=== PATIENT | female | born 1940 | race Caucasian/White ===

== ENCOUNTER 2020-01-20 15:17 | Inpatient (IN) | payer OTHER, MEDICAID, SELFPAY ==
[~2020-01-20] VITALS: Ht 172.7 cm; Wt 70.1 kg
[2020-01-20 16:32] LABS: BASOPHIL % 1.5 % (0-2); PLATELET COUNT 336 x10^3mcL (130-400); RED CELL DISTRIBUTION WIDTH 13.2 % (11.5-14.5)
[2020-01-20] MEDS ORDERED: COLACE100 MG (16:57)
[2020-01-20] MEDS ORDERED: ARICEPT10 MG PO (16:57)
[2020-01-20] MEDS ORDERED: KEPPRA500 MG PO (16:59)
[2020-01-20] MEDS ORDERED: FOSAMAX70 M1 (16:59)
[2020-01-20] MEDS ORDERED: M.V.I. ADULT10 ML (17:01)
[2020-01-20] MEDS ORDERED: DITROPAN XL5 MG PO (17:02)
[2020-01-20 17:04] LABS: microscopic required? YES; urine erythrocyte NEGATIVE (NEGATIVE)
[2020-01-20] MEDS ORDERED: PROVIGIL200 MG (17:04)
[2020-01-20] MEDS ORDERED: VALLUD (17:06)
[2020-01-20] MEDS ORDERED: VITAMIN C500 M6 (17:07)
[2020-01-20 17:19] LABS: CALCIUM 8.2 mg/dL (8.5-10.1); CARBON DIOXIDE 28.5 mmol/L (21-32); CHLORIDE SERUM 109 mmol/L (98-107); CREATININE SERUM 0.8 mg/dL (0.6-1.0); GLUCOSE SERUM 146 mg/dL (74-106); POTASSIUM SERUM 3.1 mmol/L (3.5-5.1); SODIUM SERUM 144 mmol/L (136-145)
[2020-01-20 17:24] LABS: ALBUMIN 2.4 g/dL (3.4-5.0); ALKALINE PHOSPHATASE 60 U/L (46-116); ALT/SGPT 20 U/L (14-59); AST/SGOT 21 U/L (15-37); BILIRUBIN TOTAL 0.49 mg/dL (0.20-1.00); C REACTIVE PROTEIN 11.8 mg/dL (<=0.9); LACTIC DEHYDROGENASE (LDH) 300 U/L (100-190); TOTAL PROTEIN, SERUM 6.5 g/dL (6.4-8.2)
[2020-01-20 21:11] VITALS: BP 138/62
[2020-01-21 06:12] VITALS: BP 127/55
[2020-01-21 06:13] VITALS: BP 138/62
[2020-01-21 09:51] VITALS: BP 156/65
[2020-01-21 11:57] VITALS: BP 133/56
[2020-01-21 17:24] VITALS: BP 124/55
[2020-01-21 18:35] LABS: BASOPHIL % 0.4 % (0-2); PLATELET COUNT 390 x10^3mcL (130-400)
[2020-01-21 18:47] LABS: CALCIUM 8.4 mg/dL (8.5-10.1); CARBON DIOXIDE 29.5 mmol/L (21-32); CHLORIDE SERUM 110 mmol/L (98-107); CREATININE SERUM 0.9 mg/dL (0.6-1.0); GLUCOSE SERUM 169 mg/dL (74-106); SODIUM SERUM 148 mmol/L (136-145)
[2020-01-21 18:52] LABS: ALBUMIN 2.5 g/dL (3.4-5.0); ALKALINE PHOSPHATASE 59 U/L (46-116); ALT/SGPT 21 U/L (14-59); AST/SGOT 23 U/L (15-37); BILIRUBIN TOTAL 0.5 mg/dL (0.20-1.00); TOTAL PROTEIN, SERUM 7.1 g/dL (6.4-8.2)
[2020-01-21 18:56] LABS: C REACTIVE PROTEIN 7.4 mg/dL (<=0.9)
[2020-01-21 21:49] VITALS: BP 137/59
[2020-01-22 06:20] VITALS: BP 127/53
[2020-01-22 07:58] LABS: CALCIUM 8.6 mg/dL (8.5-10.1); CARBON DIOXIDE 28.3 mmol/L (21-32); CHLORIDE SERUM 113 mmol/L (98-107); CREATININE SERUM 0.8 mg/dL (0.6-1.0); GLUCOSE SERUM 196 mg/dL (74-106); MAGNESIUM 2.3 mg/dL (1.8-2.4); PHOSPHOROUS 3.5 mg/dL (2.5-4.9); POTASSIUM SERUM 3.9 mmol/L (3.5-5.1); SODIUM SERUM 150 mmol/L (136-145)
[2020-01-22 08:05] LABS: BASOPHIL % 0.2 % (0-2); PLATELET COUNT 397 x10^3mcL (130-400); RED CELL DISTRIBUTION WIDTH 13.1 % (11.5-14.5)
[2020-01-22 08:15] LABS: BILIRUBIN TOTAL 0.4 mg/dL (0.20-1.00)
[2020-01-22 09:02] VITALS: BP 123/70
[2020-01-22 12:24] VITALS: BP 120/48
[2020-01-22 17:13] VITALS: BP 130/54
[2020-01-22 21:02] VITALS: BP 143/56
[2020-01-23 06:06] VITALS: BP 147/63
[2020-01-23 07:15] LABS: RED CELL DISTRIBUTION WIDTH 12.8 % (11.5-14.5)
[2020-01-23 08:00] VITALS: BP 121/61
[2020-01-23 08:29] LABS: BASOPHIL % 0 % (0-2); PLATELET COUNT 420 x10^3mcL (130-400)
[2020-01-23 08:35] LABS: ALKALINE PHOSPHATASE 57 U/L (46-116); ALT/SGPT 31 U/L (14-59); AST/SGOT 36 U/L (15-37); BILIRUBIN TOTAL 0.3 mg/dL (0.20-1.00); CALCIUM 8.3 mg/dL (8.5-10.1); CARBON DIOXIDE 30.7 mmol/L (21-32); CHLORIDE SERUM 115 mmol/L (98-107); CREATININE SERUM 0.8 mg/dL (0.6-1.0); GLUCOSE SERUM 171 mg/dL (74-106); MAGNESIUM 2.3 mg/dL (1.8-2.4); PHOSPHOROUS 3.7 mg/dL (2.5-4.9); POTASSIUM SERUM 3.9 mmol/L (3.5-5.1); SODIUM SERUM 153 mmol/L (136-145); TOTAL PROTEIN, SERUM 6.3 g/dL (6.4-8.2)
[2020-01-23 08:36] LABS: ALBUMIN 2.2 g/dL (3.4-5.0)
[2020-01-23 12:30] VITALS: BP 100/61
[2020-01-23 16:15] VITALS: BP 128/62
[2020-01-23 21:51] VITALS: BP 128/71
[2020-01-24 05:58] VITALS: BP 143/58
[2020-01-24 06:43] LABS: PLATELET COUNT 399 x10^3mcL (130-400)
[2020-01-24 06:55] LABS: BASOPHIL % 0 % (0-2)
[2020-01-24 07:27] LABS: MAGNESIUM 2.2 mg/dL (1.8-2.4); PHOSPHOROUS 4.4 mg/dL (2.5-4.9)
[2020-01-24 07:28] LABS: ALKALINE PHOSPHATASE 60 U/L (46-116); ALT/SGPT 48 U/L (14-59); AST/SGOT 42 U/L (15-37); BILIRUBIN TOTAL 0.38 mg/dL (0.20-1.00); CARBON DIOXIDE 29.3 mmol/L (21-32); CHLORIDE SERUM 117 mmol/L (98-107); CREATININE SERUM 0.8 mg/dL (0.6-1.0); GLUCOSE SERUM 173 mg/dL (74-106); POTASSIUM SERUM 4.1 mmol/L (3.5-5.1); SODIUM SERUM 153 mmol/L (136-145)
[2020-01-24 07:29] LABS: ALBUMIN 2.2 g/dL (3.4-5.0); TOTAL PROTEIN, SERUM 6.1 g/dL (6.4-8.2)
[2020-01-24 08:56] VITALS: BP 143/62
[2020-01-24 12:08] LABS: C REACTIVE PROTEIN 2.1 mg/dL (<=0.9)
[2020-01-24 12:34] VITALS: BP 142/114
[2020-01-24 16:56] VITALS: BP 146/98
[2020-01-24 19:23] VITALS: BP 151/70
[2020-01-25 05:26] VITALS: BP 159/53
[2020-01-25 07:10] LABS: ALKALINE PHOSPHATASE 54 U/L (46-116); ALT/SGPT 73 U/L (14-59); AST/SGOT 56 U/L (15-37); BILIRUBIN TOTAL 0.5 mg/dL (0.20-1.00); CALCIUM 8.3 mg/dL (8.5-10.1); CARBON DIOXIDE 32.7 mmol/L (21-32); CHLORIDE SERUM 114 mmol/L (98-107); CREATININE SERUM 0.8 mg/dL (0.6-1.0); GLUCOSE SERUM 173 mg/dL (74-106); POTASSIUM SERUM 4.1 mmol/L (3.5-5.1); SODIUM SERUM 150 mmol/L (136-145)
[2020-01-25 07:12] LABS: ALBUMIN 2.1 g/dL (3.4-5.0); TOTAL PROTEIN, SERUM 5.8 g/dL (6.4-8.2)
[2020-01-25 10:08] VITALS: BP 140/92
[2020-01-25 13:43] VITALS: BP 140/92
[2020-01-25 13:44] VITALS: BP 135/44
[2020-01-25 17:24] VITALS: BP 124/56
[2020-01-25 20:30] VITALS: BP 146/60
[2020-01-26 04:15] VITALS: BP 139/63
[2020-01-26 04:45] VITALS: BP 139/63
[2020-01-26 08:31] VITALS: BP 140/54
[2020-01-26 08:47] LABS: BASOPHIL % 0.3 % (0-2); RED CELL DISTRIBUTION WIDTH 12.6 % (11.5-14.5)
[2020-01-26 08:48] LABS: PLATELET COUNT 312 x10^3mcL (130-400)
[2020-01-26 09:09] LABS: ALKALINE PHOSPHATASE 52 U/L (46-116); ALT/SGPT 83 U/L (14-59); AST/SGOT 55 U/L (15-37); BILIRUBIN TOTAL 0.5 mg/dL (0.20-1.00); CALCIUM 8.1 mg/dL (8.5-10.1); CARBON DIOXIDE 30.2 mmol/L (21-32); CHLORIDE SERUM 115 mmol/L (98-107); CREATININE SERUM 0.7 mg/dL (0.6-1.0); GLUCOSE SERUM 173 mg/dL (74-106); MAGNESIUM 2.3 mg/dL (1.8-2.4); POTASSIUM SERUM 4.1 mmol/L (3.5-5.1); SODIUM SERUM 151 mmol/L (136-145)
[2020-01-26 09:10] LABS: TOTAL PROTEIN, SERUM 5.3 g/dL (6.4-8.2)
[2020-01-26 13:17] VITALS: BP 142/51
[2020-01-26 18:28] VITALS: BP 132/80
[2020-01-26 21:24] VITALS: BP 141/68
[2020-01-27 05:51] VITALS: BP 134/52
[2020-01-27 08:53] LABS: CALCIUM 8.4 mg/dL (8.5-10.1); CARBON DIOXIDE 30.9 mmol/L (21-32); CHLORIDE SERUM 110 mmol/L (98-107); CREATININE SERUM 0.7 mg/dL (0.6-1.0); GLUCOSE SERUM 231 mg/dL (74-106); POTASSIUM SERUM 3.9 mmol/L (3.5-5.1); SODIUM SERUM 147 mmol/L (136-145)
[2020-01-27 09:23] LABS: BASOPHIL % 0.1 % (0-2); PLATELET COUNT 312 x10^3mcL (130-400); RED CELL DISTRIBUTION WIDTH 12.7 % (11.5-14.5)
[2020-01-27 09:35] VITALS: BP 104/84
[2020-01-27 13:46] VITALS: BP 131/54
[2020-01-27 18:34] VITALS: BP 115/52
[2020-01-27 21:00] VITALS: BP 118/56
[2020-01-27 23:08] VITALS: BP 128/60
[2020-01-28 06:00] VITALS: BP 125/59
[2020-01-28 08:30] VITALS: BP 126/57
[2020-01-28 09:00] LABS: ALBUMIN 1.9 g/dL (3.4-5.0); ALKALINE PHOSPHATASE 55 U/L (46-116); ALT/SGPT 85 U/L (14-59); AST/SGOT 38 U/L (15-37); BILIRUBIN TOTAL 0.77 mg/dL (0.20-1.00); CALCIUM 7.9 mg/dL (8.5-10.1); CARBON DIOXIDE 32.7 mmol/L (21-32); CHLORIDE SERUM 111 mmol/L (98-107); CREATININE SERUM 0.6 mg/dL (0.6-1.0); GLUCOSE SERUM 127 mg/dL (74-106); MAGNESIUM 2.4 mg/dL (1.8-2.4); PHOSPHOROUS 2.3 mg/dL (2.5-4.9); POTASSIUM SERUM 3.8 mmol/L (3.5-5.1); SODIUM SERUM 146 mmol/L (136-145); TOTAL PROTEIN, SERUM 4.8 g/dL (6.4-8.2)
[2020-01-28 10:42] LABS: BASOPHIL % 0.3 % (0-2); PLATELET COUNT 254 x10^3mcL (130-400); RED CELL DISTRIBUTION WIDTH 13.4 % (11.5-14.5)
[2020-01-28 13:40] VITALS: BP 115/55
[2020-01-28 17:15] VITALS: BP 116/54
[2020-01-28 21:30] VITALS: BP 107/47
[2020-01-29 06:00] VITALS: BP 120/56
[2020-01-29 08:05] LABS: CALCIUM 7.5 mg/dL (8.5-10.1); CARBON DIOXIDE 29.9 mmol/L (21-32); CHLORIDE SERUM 109 mmol/L (98-107); CREATININE SERUM 0.5 mg/dL (0.6-1.0); GLUCOSE SERUM 110 mg/dL (74-106); MAGNESIUM 2.2 mg/dL (1.8-2.4); PHOSPHOROUS 1.9 mg/dL (2.5-4.9); POTASSIUM SERUM 3.9 mmol/L (3.5-5.1); SODIUM SERUM 143 mmol/L (136-145)
[2020-01-29 08:12] LABS: ALBUMIN 1.7 g/dL (3.4-5.0)
[2020-01-29 08:12] LABS: BASOPHIL % 0.3 % (0-2); PLATELET COUNT 178 x10^3mcL (130-400); RED CELL DISTRIBUTION WIDTH 12.7 % (11.5-14.5)
[2020-01-29 09:05] VITALS: BP 118/62
[2020-01-29 13:18] VITALS: BP 108/60
[2020-01-29 18:21] VITALS: BP 127/60
[2020-01-29 21:04] VITALS: BP 123/67
[2020-01-30 05:45] VITALS: BP 111/44
[2020-01-30 08:43] VITALS: BP 132/56
[2020-01-30 11:56] VITALS: BP 135/63
[2020-01-30 15:49] VITALS: BP 113/83
[2020-01-30 21:33] VITALS: BP 118/50
[2020-01-31 05:51] VITALS: BP 122/47
[2020-01-31 06:50] LABS: BASOPHIL % 0.2 % (0-2); PLATELET COUNT 144 x10^3mcL (130-400); RED CELL DISTRIBUTION WIDTH 12.6 % (11.5-14.5)
[2020-01-31 07:12] LABS: CALCIUM 7.6 mg/dL (8.5-10.1); CARBON DIOXIDE 29.9 mmol/L (21-32); CHLORIDE SERUM 106 mmol/L (98-107); CREATININE SERUM 0.5 mg/dL (0.6-1.0); GLUCOSE SERUM 125 mg/dL (74-106); MAGNESIUM 2.2 mg/dL (1.8-2.4); PHOSPHOROUS 2.6 mg/dL (2.5-4.9); POTASSIUM SERUM 4.8 mmol/L (3.5-5.1); SODIUM SERUM 138 mmol/L (136-145)
[2020-01-31 09:38] VITALS: BP 109/63
[2020-01-31 14:00] VITALS: BP 106/43
[2020-01-31 18:27] VITALS: BP 111/65
[2020-01-31 21:36] VITALS: BP 139/50
[2020-02-01 05:31] VITALS: BP 131/51
[2020-02-01 08:21] LABS: BASOPHIL % 0.2 % (0-2); PLATELET COUNT 165 x10^3mcL (130-400); RED CELL DISTRIBUTION WIDTH 12.7 % (11.5-14.5)
[2020-02-01 08:48] LABS: ALKALINE PHOSPHATASE 64 U/L (46-116); ALT/SGPT 51 U/L (14-59); AST/SGOT 25 U/L (15-37); BILIRUBIN TOTAL 0.89 mg/dL (0.20-1.00); CALCIUM 7.7 mg/dL (8.5-10.1); CARBON DIOXIDE 31.1 mmol/L (21-32); CHLORIDE SERUM 106 mmol/L (98-107); CREATININE SERUM 0.5 mg/dL (0.6-1.0); GLUCOSE SERUM 128 mg/dL (74-106); MAGNESIUM 2.1 mg/dL (1.8-2.4); PHOSPHOROUS 2.8 mg/dL (2.5-4.9); POTASSIUM SERUM 4.1 mmol/L (3.5-5.1); SODIUM SERUM 140 mmol/L (136-145)
[2020-02-01 08:51] LABS: ALBUMIN 1.9 g/dL (3.4-5.0); TOTAL PROTEIN, SERUM 4.8 g/dL (6.4-8.2)
[2020-02-01 09:21] VITALS: BP 135/69
[2020-02-01 11:30] VITALS: BP 111/46
[2020-02-01 16:00] VITALS: BP 125/44
[2020-02-01 23:23] VITALS: BP 127/64
[2020-02-02 05:57] VITALS: BP 123/52
[2020-02-02 08:50] VITALS: BP 160/78
[2020-02-02 09:25] VITALS: BP 101/58
[2020-02-02 12:03] LABS: RED CELL DISTRIBUTION WIDTH 12.8 % (11.5-14.5)
[2020-02-02 12:07] LABS: BASOPHIL % 0 % (0-2)
[2020-02-02 12:08] LABS: C REACTIVE PROTEIN 1.1 mg/dL (<=0.9); CALCIUM 7.9 mg/dL (8.5-10.1); CARBON DIOXIDE 28.6 mmol/L (21-32); CHLORIDE SERUM 105 mmol/L (98-107); CREATININE SERUM 0.4 mg/dL (0.6-1.0); GLUCOSE SERUM 179 mg/dL (74-106); POTASSIUM SERUM 4.3 mmol/L (3.5-5.1); SODIUM SERUM 138 mmol/L (136-145)
[2020-02-02 12:40] LABS: PLATELET COUNT 183 x10^3mcL (130-400)
[2020-02-02 12:50] VITALS: BP 139/65
[2020-02-02 16:22] VITALS: BP 118/67
[2020-02-02 20:35] VITALS: BP 116/29
[2020-02-03 00:38] VITALS: Ht 172.7 cm; Wt 70.1 kg
[2020-02-03 05:04] VITALS: BP 102/44
[2020-02-03 08:41] VITALS: BP 123/46
[2020-02-03 09:25] LABS: CALCIUM 7.9 mg/dL (8.5-10.1); CARBON DIOXIDE 30.6 mmol/L (21-32); CHLORIDE SERUM 104 mmol/L (98-107); CREATININE SERUM 0.5 mg/dL (0.6-1.0); GLUCOSE SERUM 157 mg/dL (74-106); PHOSPHOROUS 3.1 mg/dL (2.5-4.9); POTASSIUM SERUM 4.3 mmol/L (3.5-5.1); SODIUM SERUM 138 mmol/L (136-145)
[2020-02-03 09:28] LABS: BASOPHIL % 0.3 % (0-2); RED CELL DISTRIBUTION WIDTH 12.6 % (11.5-14.5)
[2020-02-03 09:29] LABS: PLATELET COUNT 213 x10^3mcL (130-400)
[2020-02-03 12:46] VITALS: BP 113/48
[2020-02-03 16:36] VITALS: BP 116/64
[2020-02-03 22:12] VITALS: BP 130/72
[2020-02-04 06:15] VITALS: BP 134/34
[2020-02-04 07:50] VITALS: BP 114/47
[2020-02-04 11:51] VITALS: BP 118/44
[2020-02-04 17:26] VITALS: BP 119/49
[2020-02-04 21:15] VITALS: BP 120/51
[2020-02-05 05:38] VITALS: BP 122/55
[2020-02-05 07:17] LABS: PLATELET COUNT 218 x10^3mcL (130-400); RED CELL DISTRIBUTION WIDTH 12.9 % (11.5-14.5)
[2020-02-05 07:56] LABS: C REACTIVE PROTEIN 11.6 mg/dL (<=0.9); CALCIUM 8.6 mg/dL (8.5-10.1); CARBON DIOXIDE 26.8 mmol/L (21-32); CHLORIDE SERUM 103 mmol/L (98-107); CREATININE SERUM 0.5 mg/dL (0.6-1.0); GLUCOSE SERUM 95 mg/dL (74-106); MAGNESIUM 1.9 mg/dL (1.8-2.4); PHOSPHOROUS 3.4 mg/dL (2.5-4.9); POTASSIUM SERUM 4.1 mmol/L (3.5-5.1); SODIUM SERUM 138 mmol/L (136-145)
[2020-02-05 08:32] VITALS: BP 120/101
[2020-02-05 10:55] LABS: MONOCYTE 10 % (0-7); SEGMENTED NEUTROPHILS 79 % (37-75)
[2020-02-05 10:56] LABS: BAND NEUTROPHIL 2 % (0-10); rbc morphology (normal/abnorm) NORMAL (NORMAL)
[2020-02-05 13:20] VITALS: BP 144/33
[2020-02-05 16:32] VITALS: BP 107/42
[2020-02-05 21:31] VITALS: BP 137/55
[2020-02-06 05:58] VITALS: BP 105/53
[2020-02-06 08:57] LABS: CALCIUM 8.2 mg/dL (8.5-10.1); CARBON DIOXIDE 30.6 mmol/L (21-32); CHLORIDE SERUM 102 mmol/L (98-107); CREATININE SERUM 0.5 mg/dL (0.6-1.0); GLUCOSE SERUM 122 mg/dL (74-106); POTASSIUM SERUM 4.2 mmol/L (3.5-5.1); SODIUM SERUM 138 mmol/L (136-145)
[2020-02-06 09:01] LABS: MAGNESIUM 1.9 mg/dL (1.8-2.4); PHOSPHOROUS 2.8 mg/dL (2.5-4.9)
[2020-02-06 09:02] LABS: C REACTIVE PROTEIN 12.7 mg/dL (<=0.9)
[2020-02-06 09:09] VITALS: BP 99/55
[2020-02-06 09:11] LABS: BASOPHIL % 0.1 % (0-2); PLATELET COUNT 226 x10^3mcL (130-400); RED CELL DISTRIBUTION WIDTH 13.3 % (11.5-14.5)
[2020-02-06 12:36] VITALS: BP 125/68
[2020-02-06 16:38] VITALS: BP 108/38
[2020-02-06 21:38] VITALS: BP 120/59
[2020-02-07 06:23] VITALS: BP 107/71
[2020-02-07 08:00] LABS: BASOPHIL % 0.3 % (0-2); PLATELET COUNT 194 x10^3mcL (130-400)
[2020-02-07 08:31] LABS: C REACTIVE PROTEIN 7.8 mg/dL (<=0.9); CALCIUM 8.3 mg/dL (8.5-10.1); CARBON DIOXIDE 30.6 mmol/L (21-32); CHLORIDE SERUM 102 mmol/L (98-107); CREATININE SERUM 0.5 mg/dL (0.6-1.0); GLUCOSE SERUM 95 mg/dL (74-106); MAGNESIUM 1.9 mg/dL (1.8-2.4); PHOSPHOROUS 2.8 mg/dL (2.5-4.9); POTASSIUM SERUM 4.4 mmol/L (3.5-5.1); SODIUM SERUM 138 mmol/L (136-145)
[2020-02-07 10:00] VITALS: BP 107/41; BP 117/42
[2020-02-07 17:06] VITALS: BP 115/86
[2020-02-07 22:03] VITALS: BP 123/52
[2020-02-08 05:50] VITALS: BP 130/49
[2020-02-08 08:49] VITALS: BP 108/50
[2020-02-08 18:25] VITALS: BP 108/50
[2020-02-08 20:35] VITALS: BP 115/49
== END 2020-02-08 20:34 | DRG 177 ==
LOC: ED 15:17 → DU 18:05
PROVIDERS: Emergency Medicine; Internal Medicine; Student in an Organized Health Care Education/Training Program; Surgery; ADMIT Family Medicine; ATTEND Family Medicine
PROC: 02HV33Z Insertion of Infusion Device into Superior Vena Cava, Percutaneous Approach (ICD-10-PCS; 2020-01-27)
PROC: 0DH63UZ Insertion of Feeding Device into Stomach, Percutaneous Approach (ICD-10-PCS; principal; 2020-02-03 09:30)
DX: U07.1 COVID-19 (principal); J12.89 Other viral pneumonia; J96.01 Acute respiratory failure with hypoxia; N17.0 Acute kidney failure with tubular necrosis; E43 Unspecified severe protein-calorie malnutrition; E87.0 Hyperosmolality and hypernatremia; F20.9 Schizophrenia, unspecified; G30.9 Alzheimer's disease, unspecified; F02.80 Dementia in other diseases classified elsewhere, unspecified severity, without behavioral disturbance, psychotic disturbance, mood disturbance, and anxiety; E87.6 Hypokalemia; F32.9 Major depressive disorder, single episode, unspecified; R13.10 Dysphagia, unspecified; R00.1 Bradycardia, unspecified; Z88.1 Allergy status to other antibiotic agents; Z88.8 Allergy status to other drugs, medicaments and biological substances; Z79.899 Other long term (current) drug therapy; Z79.01 Long term (current) use of anticoagulants; Z68.22 Body mass index [BMI] 22.0-22.9, adult
CPT/HCPCS: 43235; 82962; 83880; 85378; 92526-GN; 92610-GN; 97110-GP; 97530-GP; G0378; J0456; J0461; J0696; J1100; J1644; J1650; J1953; J2250; J2543; J2920; J3475; J3480; J3490; J3535; J7030; J7040; J7042; J7131; Q0092; U0003-CS